=== PATIENT | female | born 1990 | race Caucasian/White ===

== ENCOUNTER 2017-12-29 02:45 | Inpatient (IN) | payer OTHER ==
[2017-12-29] VITALS (31 sets, daily range): BP systolic 100–149; BP diastolic 57–91; PULSE 57–94; TEMP 97.2–98.5
[~2017-12-29] VITALS: Ht 165.1 cm; Wt 86.8 kg
[2017-12-29] MEDS ORDERED: PRENATAL1 TA7 PO (03:19)
[2017-12-29 04:44] LABS: BASO % 0.3 % (0.0-2.0); EOS # 0.1 (0.0-0.7); EOS % 1.1 % (0-4.0); LYMPH # 1.7 (1.2-3.4); LYMPH % 23.4 % (20.0-51.0); MEAN CELL VOLUME 92 fl (80.0-100.0); MEAN CORPUSCULAR HEMOGLOBIN 31 pg (27.0-31.0); MEAN CORPUSCULAR HGB CONC 34 g/dl (33.0-37.0); MEAN PLATELET VOLUME 11.5 fl (7.4-10.4); MONO # 0.4 (0.1-0.6); MONO % 5.9 % (1.7-9.3); PLATELET COUNT 212 K/mm3 (130-400); RED BLOOD COUNT 3.86 M/mm3 (4.10-5.30); REDCELL DISTRIBUTION WIDTH-CV 12.7 % (11.5-14.5)
[2017-12-29 04:50] LABS: HEMATOCRIT 35.5 % (37.0-47.0)
[2017-12-30 01:10] VITALS: BP 111/61; PULSE 70; TEMP 98
[2017-12-30 05:20] VITALS: BP 112/74; PULSE 68; TEMP 98.3
[2017-12-30 07:28] LABS: HEMOGLOBIN 11.7 g/dl (12.5-16.0)
[2017-12-30 07:34] LABS: HEMATOCRIT 34.9 % (37.0-47.0)
[2017-12-30] MEDS ORDERED: IBU600 MG PO (08:40)
[2017-12-30] MEDS ORDERED: PERCOCET 325 MG1 TA2 PO (08:40)
[2017-12-30 08:59] VITALS: BP 125/80; PULSE 61
[2017-12-30 17:00] VITALS: BP 118/64; PULSE 66
[2017-12-30 19:15] VITALS: BP 114/71; PULSE 57; TEMP 97.8
[2017-12-31 07:30] VITALS: BP 125/67; PULSE 54
== END 2017-12-31 10:55 | disposition home or self-care (01) | DRG 775 ==
LOC: LDRO 02:45 → LDR 03:26 → OB 03:26
PROVIDERS: Obstetrics & Gynecology
PROC: 10E0XZZ Delivery of Products of Conception, External Approach (ICD-10-PCS; principal; 2017-12-29)
PROC: 0UQMXZZ Repair Vulva, External Approach (ICD-10-PCS; 2017-12-29)
DX: O70.0 First degree perineal laceration during delivery (principal); O34.211 Maternal care for low transverse scar from previous cesarean delivery; Z3A.39 39 weeks gestation of pregnancy; Z37.0 Single live birth; Z22.330 Carrier of Group B streptococcus; O99.334 Smoking (tobacco) complicating childbirth
CPT/HCPCS: J2540; J2590; J2795; J7120